=== PATIENT | female | born 1955 | race Caucasian/White ===

== ENCOUNTER → 2016-09-12 | Outpatient (CLI) | payer OTHER ==
[~2016-09-12] MED LIST: ALBUTEROL2.5 MG/3 M IH; ALTOPREV20 MG PO; AMOXICILLIN 8751 TAB PO; CALCIUM/VITAMIN1 TA3 PO; COLESTID 1GM1 G PO; COLESTID5 GM/PACKE PO; COMPLEX B-1000.4 MG PO; COUMADIN5 MG PO; DUO-KAPS1 CAP PO; ELTROXIN0.3 MG PO; EPA/GLA1 SGL PO; FEOSOL325 MG PO; FLONASE0.05 MG/AC NS; FOLPLEX 2.2 0.51 TAB PO; GEMFIBROZIL600 MG PO; LISINOPRIL20 MG PO; LOPID600 MG PO; MASON NATURAL1200 MG PO; MEDI-FIRST ASP325 MG PO; MULTIVITAMIN1 SGL PO; NATURAL E400 IU PO; NORCO 325 MG-51 TAB PO; OXYCODONE PO; POTASSIUM CHLO20 ME3 PO; POTASSIUM20 MEQ PO; RANITIDINE HCL150 M1 PO; SEA OMEGA 301 SGL PO; SYNTHROID0.125 MG/T PO; SYNTHROID0.3 MG PO; VITAMIN C500 MG PO; VITAMIN E400 UNI1 PO; ZOFRAN4 M1 PO; [UNRECOGNIZED DRUG - OTHER] PO
== END ==
LOC: LAB 07:55
DX: E03.8 Other specified hypothyroidism (principal)

== ENCOUNTER → 2016-09-17 | Outpatient (CLI) | payer OTHER | LOC: MAMMO 08:02 | DX: Z12.31 Encounter for screening mammogram for malignant neoplasm of breast (principal); R92.2 Inconclusive mammogram | CPT/HCPCS: G0202 ==

== ENCOUNTER → 2016-12-14 | Outpatient (CLI) | payer OTHER ==
[2015-10-12 12:38] VITALS: BP 110/59
== END ==
LOC: LAB 06:34
DX: I10 Essential (primary) hypertension (principal); M10.9 Gout, unspecified; E78.1 Pure hyperglyceridemia; E03.8 Other specified hypothyroidism

== ENCOUNTER → 2016-12-21 | Outpatient (CLI) | payer OTHER ==
[2015-10-12 12:38] VITALS: BP 110/59
== END ==
LOC: LAB 09:38
DX: Z12.11 Encounter for screening for malignant neoplasm of colon (principal)

== ENCOUNTER → 2017-02-05 | Outpatient (CLI) | payer OTHER ==
[2015-10-12 12:38] VITALS: BP 110/59
== END ==
LOC: LAB 07:19
DX: E03.8 Other specified hypothyroidism (principal)

== ENCOUNTER → 2017-05-13 | Outpatient (CLI) | payer OTHER ==
[2015-10-12 12:38] VITALS: BP 110/59
== END ==
LOC: LAB 10:37
PROVIDERS: Family Medicine
DX: E03.8 Other specified hypothyroidism (principal); R19.7 Diarrhea, unspecified

== ENCOUNTER → 2017-12-22 | Outpatient (CLI) | payer OTHER ==
[2015-10-12 12:38] VITALS: BP 110/59
[2017-12-22 10:59] LABS: ALBUMIN 4.2 g/dL (3.5-5.0); BUN/CREATININE RATIO 19.1 (6.0-26.0); CALCIUM 8.6 mg/dL (8.4-10.2); POTASSIUM 4.6 mmol/L (3.6-5.0); TOTAL BILIRUBIN 0.4 mg/dL (0.2-1.3); TOTAL PROTEIN 7.7 g/dL (6.3-8.2)
== END ==
LOC: LAB 10:29
PROVIDERS: Family Medicine
DX: I10 Essential (primary) hypertension (principal); M10.9 Gout, unspecified; E78.1 Pure hyperglyceridemia; E03.8 Other specified hypothyroidism

== ENCOUNTER → 2018-01-12 | Outpatient (CLI) | payer OTHER ==
[2015-10-12 12:38] VITALS: BP 110/59
== END ==
LOC: RAD 09:04 → MAMMO 09:15
DX: Z13.820 Encounter for screening for osteoporosis (principal); M81.0 Age-related osteoporosis without current pathological fracture; Z87.39 Personal history of other diseases of the musculoskeletal system and connective tissue

== ENCOUNTER → 2018-02-04 | Outpatient (CLI) | payer OTHER ==
[2015-10-12 12:38] VITALS: BP 110/59
== END ==
LOC: LAB 10:26
PROVIDERS: Family Medicine
DX: E03.9 Hypothyroidism, unspecified (principal)

== ENCOUNTER 2018-04-26 17:02 | Emergency (ER) | payer OTHER ==
[~2018-04-26] VITALS: Ht 167.6 cm; Wt 90.0 kg
[2018-04-26] MEDS ORDERED: WARFARIN SODIU2.5 MG PO (17:11)
[2018-04-26 18:01] VITALS: BP 118/76
== END 2018-04-26 18:00 | disposition home or self-care (01) ==
LOC: ED 17:02
DX: Z04.3 Encounter for examination and observation following other accident (principal); V49.88XA Car occupant (driver) (passenger) injured in other specified transport accidents, initial encounter; Y92.414 Local residential or business street as the place of occurrence of the external cause; Y93.9 Activity, unspecified; Y99.9 Unspecified external cause status; I10 Essential (primary) hypertension; I82.509 Chronic embolism and thrombosis of unspecified deep veins of unspecified lower extremity; Z79.01 Long term (current) use of anticoagulants; K21.9 Gastro-esophageal reflux disease without esophagitis; Z87.891 Personal history of nicotine dependence

== ENCOUNTER → 2018-05-24 | Outpatient (CLI) | payer OTHER ==
[2018-04-26 18:01] VITALS: BP 118/76
[~2018-05-24] MED LIST changes: +WARFARIN SODIU2.5 MG PO
== END ==
LOC: MAMMO 08:17
DX: N64.59 Other signs and symptoms in breast (principal); M77.8 Other enthesopathies, not elsewhere classified

== ENCOUNTER → 2018-06-09 | Outpatient (CLI) | payer OTHER | LOC: MSO 09:39 | DX: M25.522 Pain in left elbow (principal) ==

== ENCOUNTER → 2018-09-08 | Outpatient (CLI) | payer OTHER ==
[~2018-09-08] VITALS: Ht 167.6 cm; Wt 90.0 kg
[2018-09-08 12:49] VITALS: BP 134/64
== END ==
LOC: AMSURD 10:08
DX: I48.0 Paroxysmal atrial fibrillation (principal); I49.8 Other specified cardiac arrhythmias; I10 Essential (primary) hypertension; E03.8 Other specified hypothyroidism

== ENCOUNTER → 2019-03-03 | Outpatient (CLI) | payer OTHER ==
[2018-09-08 12:49] VITALS: BP 134/64
== END ==
LOC: LAB 07:43
DX: E03.9 Hypothyroidism, unspecified (principal)

== ENCOUNTER → 2019-05-25 | Outpatient (CLI) | payer OTHER ==
[2018-09-08 12:49] VITALS: BP 134/64
== END ==
LOC: MAMMO 07:16
DX: Z12.31 Encounter for screening mammogram for malignant neoplasm of breast (principal); E03.9 Hypothyroidism, unspecified; E55.9 Vitamin D deficiency, unspecified

== ENCOUNTER 2019-11-13 17:52 | Emergency (ER) | payer OTHER ==
[~2019-11-13] VITALS: Ht 167.6 cm; Wt 95.0 kg
[~2019-11-13 17:52] MED LIST changes: -SYNTHROID0.125 MG/T PO; +SYNTHROID0.2 MG PO
[2019-11-13 18:56] LABS: EOS # 0.1 (0.04-0.40); EOS % 1.2 % (1.0-5.0); HEMATOCRIT 35.8 % (37.0-47.0); HEMOGLOBIN 11.1 g/dL (12.5-16.0); LYMPH# 2.1 (1.50-4.00); MEAN CELL VOLUME 97 fl (78-100); MEAN CORPUSCULAR HEMOGLOBIN 30 pg (27-31); MEAN CORPUSCULAR HGB CONC 31 g/dL (33-37); MEAN PLATELET VOLUME 9.5 fl (7.4-10.4); MONO # 0.5 (0.20-0.80); NEU # 3.7 (1.40-6.50); PLATELET COUNT 315 K/mm3 (130-400); RED BLOOD COUNT 3.71 M/mm3 (4.10-5.30); RED CELL DISTRIBUTION WIDTH 14.1 % (11.5-14.5); WHITE BLOOD COUNT 6.5 K/mm3 (4.8-10.8)
[2019-11-13 19:01] LABS: ALBUMIN 4.1 g/dL (3.4-4.8); POTASSIUM 3.8 mmol/L (3.5-5.1)
[2019-11-13 19:04] LABS: TOTAL PROTEIN 7.3 g/dL (6.2-8.1)
[2019-11-13 19:06] LABS: TOTAL BILIRUBIN 0.3 mg/dL (0.2-1.2)
[2019-11-13] MEDS ORDERED: ACETAMINOPHEN325 M1 PO (19:34)
[2019-11-13] MEDS ORDERED: PRILOSEC OTC20 MG PO (19:35)
[2019-11-13] MEDS ORDERED: METAMUCIL3.4 GM/Dos PO (19:35)
[2019-11-13] MEDS ORDERED: VITAMIN D310 MC1 PO (19:36)
[2019-11-13 19:41] LABS: URINE APPEARANCE CLOUDY; URINE COLOR RED
[2019-11-13 20:00] LABS: PARTIAL THROMBOPLASTIN TIME 101.5 SECONDS (21.0-32.0)
[2019-11-13 22:12] VITALS: BP 160/57
== END 2019-11-13 22:20 | disposition short-term general hospital (02) ==
LOC: ED 17:52
PROVIDERS: Nurse Practitioner
DX: R31.9 Hematuria, unspecified (principal); R79.1 Abnormal coagulation profile; R10.9 Unspecified abdominal pain; K21.9 Gastro-esophageal reflux disease without esophagitis; I10 Essential (primary) hypertension; Z87.891 Personal history of nicotine dependence; Z86.718 Personal history of other venous thrombosis and embolism; Z90.89 Acquired absence of other organs; Z79.82 Long term (current) use of aspirin; Z79.01 Long term (current) use of anticoagulants
CPT/HCPCS: J2270; J2405; Q9967

== ENCOUNTER → 2019-11-17 | Outpatient (CLI) | payer OTHER ==
[2019-11-13 22:12] VITALS: BP 160/57
[~2019-11-17] MED LIST changes: +ACETAMINOPHEN325 M1 PO; +METAMUCIL3.4 GM/Dos PO; +PRILOSEC OTC20 MG PO; +VITAMIN D310 MC1 PO
[2019-11-17 14:39] LABS: EOS # 0.1 (0.04-0.40); EOS % 1.9 % (1.0-5.0); HEMATOCRIT 35.9 % (37.0-47.0); HEMOGLOBIN 11.5 g/dL (12.5-16.0); LYMPH# 2.1 (1.50-4.00); MEAN CELL VOLUME 96 fl (78-100); MEAN CORPUSCULAR HEMOGLOBIN 31 pg (27-31); MEAN CORPUSCULAR HGB CONC 32 g/dL (33-37); MEAN PLATELET VOLUME 9.3 fl (7.4-10.4); MONO # 0.6 (0.20-0.80); NEU # 2.8 (1.40-6.50); PLATELET COUNT 304 K/mm3 (130-400); RED BLOOD COUNT 3.73 M/mm3 (4.10-5.30); RED CELL DISTRIBUTION WIDTH 13.9 % (11.5-14.5); WHITE BLOOD COUNT 5.7 K/mm3 (4.8-10.8)
[2019-11-17 14:48] LABS: POTASSIUM 3.9 mmol/L (3.5-5.1)
[2019-11-17 14:49] LABS: PROTHROMBIN TIME 9.2 SECONDS (9.0-12.0)
[2019-11-17 14:50] LABS: CALCIUM 9.3 mg/dL (8.3-10.5); URINE APPEARANCE HAZY; URINE BILIRUBIN NEGATIVE (NEGATIVE); URINE BLOOD 50 ery/uL (NEGATIVE); URINE COLOR YELLOW; URINE GLUCOSE NEGATIVE (NEGATIVE); URINE KETONE NEGATIVE (NEGATIVE); URINE LEUKOCYTE ESTERASE 1+ (NEGATIVE); URINE NITRATE NEGATIVE (NEGATIVE); URINE PROTEIN(semi-quant) TRACE mg/dL (NEGATIVE); URINE UROBILINOGEN NORMAL (NORMAL)
== END ==
LOC: LAB 14:07
PROVIDERS: Family Medicine
DX: E87.6 Hypokalemia (principal); D64.9 Anemia, unspecified; R31.9 Hematuria, unspecified; I48.0 Paroxysmal atrial fibrillation; D68.61 Antiphospholipid syndrome

== ENCOUNTER → 2019-12-20 | Outpatient (CLI) | payer OTHER ==
[2019-12-20 07:24] LABS: HEMATOCRIT 33.1 % (37.0-47.0); HEMOGLOBIN 10.5 g/dL (12.5-16.0); MEAN PLATELET VOLUME 9.7 fl (7.4-10.4); RED BLOOD COUNT 3.4 M/mm3 (4.10-5.30); RED CELL DISTRIBUTION WIDTH 14.1 % (11.5-14.5)
[2019-12-20 07:31] LABS: POTASSIUM 3.7 mmol/L (3.5-5.1)
[2019-12-20 07:32] LABS: CALCIUM 7.9 mg/dL (8.3-10.5)
== END ==
LOC: LAB 07:09
PROVIDERS: Family Medicine
DX: E87.6 Hypokalemia (principal); D64.9 Anemia, unspecified; E03.9 Hypothyroidism, unspecified; E78.5 Hyperlipidemia, unspecified

== ENCOUNTER → 2020-01-31 | Outpatient (CLI) | payer OTHER ==
[2020-01-31 10:14] LABS: HEMATOCRIT 37.8 % (37.0-47.0); HEMOGLOBIN 12.3 g/dL (12.5-16.0); MEAN PLATELET VOLUME 9.4 fl (7.4-10.4); RED CELL DISTRIBUTION WIDTH 13.8 % (11.5-14.5); WHITE BLOOD COUNT 6.1 K/mm3 (4.8-10.8)
== END ==
LOC: LAB 10:00
PROVIDERS: Family Medicine
DX: E03.9 Hypothyroidism, unspecified (principal); D64.9 Anemia, unspecified; I49.8 Other specified cardiac arrhythmias; D68.61 Antiphospholipid syndrome; I10 Essential (primary) hypertension; I48.0 Paroxysmal atrial fibrillation; E78.5 Hyperlipidemia, unspecified; E55.9 Vitamin D deficiency, unspecified

== ENCOUNTER → 2020-03-13 | Outpatient (CLI) | payer OTHER ==
[2020-03-13 09:00] LABS: PROTHROMBIN TIME 25.7 SECONDS (9.0-12.0)
[2020-03-13 09:52] LABS: EOS # 0.1 (0.04-0.40); EOS % 0.9 % (1.0-5.0); HEMATOCRIT 31.7 % (37.0-47.0); HEMOGLOBIN 10.5 g/dL (12.5-16.0); LYMPH# 3.3 (1.50-4.00); MEAN CELL VOLUME 89 fl (78-100); MEAN CORPUSCULAR HEMOGLOBIN 29 pg (27-31); MEAN CORPUSCULAR HGB CONC 33 g/dL (33-37); MEAN PLATELET VOLUME 10.5 fl (7.4-10.4); MONO # 0.7 (0.20-0.80); NEU # 6.6 (1.40-6.50); PLATELET COUNT 329 K/mm3 (130-400); RED BLOOD COUNT 3.58 M/mm3 (4.10-5.30); RED CELL DISTRIBUTION WIDTH 15.8 % (11.5-14.5)
[2020-03-13 09:56] LABS: URINE APPEARANCE BLOODY; URINE COLOR RED
[2020-03-13 10:37] LABS: ALBUMIN 3.7 g/dL (3.4-4.8); POTASSIUM 2.1 mmol/L (3.5-5.1); TOTAL BILIRUBIN 0.5 mg/dL (0.2-1.2)
[2020-03-13 10:38] LABS: CALCIUM 4.9 mg/dL (8.3-10.5)
[2020-03-13 10:40] LABS: TOTAL PROTEIN 6.2 g/dL (6.2-8.1)
[2020-03-13 23:02] LABS: CALCIUM, IONIZED, SERUM 0.67 mmol/L (1.19-1.41)
== END ==
LOC: LAB 07:32
PROVIDERS: Family Medicine
DX: E03.9 Hypothyroidism, unspecified (principal); D64.9 Anemia, unspecified; I49.8 Other specified cardiac arrhythmias; D68.61 Antiphospholipid syndrome; I10 Essential (primary) hypertension; I48.0 Paroxysmal atrial fibrillation; E78.5 Hyperlipidemia, unspecified; E55.9 Vitamin D deficiency, unspecified; R31.9 Hematuria, unspecified; R25.2 Cramp and spasm; Z86.718 Personal history of other venous thrombosis and embolism

== ENCOUNTER → 2020-07-31 | Outpatient (CLI) | payer OTHER ==
[2020-03-13 14:25] VITALS: BP 151/81
== END ==
LOC: MAMMO 10:00
DX: Z12.31 Encounter for screening mammogram for malignant neoplasm of breast (principal)

== ENCOUNTER 2021-01-20 00:20 | Emergency (ER) | payer OTHER ==
[2021-01-20] MEDS ORDERED: CARAFATE 1GM1 G PO (01:04)
[2021-01-20] MEDS ORDERED: KLONOPIN 1MG1 MG PO (01:06)
[2021-01-20] MEDS ORDERED: VITAMIN D21250 MCG PO (01:07)
[2021-01-20] MEDS ORDERED: FAMOTIDINE20 MG PO (01:08)
[2021-01-20] MEDS ORDERED: LEXAPRO5 MG PO (01:08)
[2021-01-20] MEDS ORDERED: LEVOTHYROXINE175 MCG PO (01:11)
[2021-01-20] MEDS ORDERED: LIDOCAINE HC20 MG/M1 PO (01:12)
[2021-01-20] MEDS ORDERED: LIOTHYRONINE SO5 MCG PO (01:13)
[2021-01-20] MEDS ORDERED: MAALOX ADVANCE355 M1 PO (01:14)
[2021-01-20] MEDS ORDERED: MAGNESIUM400 M1 PO (01:16)
[2021-01-20 01:35] LABS: ALBUMIN 3.4 g/dL (3.4-4.8); POTASSIUM 3.8 mmol/L (3.5-5.1)
[2021-01-20 01:37] LABS: CALCIUM 8.5 mg/dL (8.3-10.5)
[2021-01-20 01:38] LABS: TOTAL PROTEIN 6.2 g/dL (6.2-8.1)
[2021-01-20 01:40] LABS: BASO # 0.02 (0.02-0.10); EOS # 0.16 (0.04-0.40); EOS % 3.1 % (1.0-5.0); HEMATOCRIT 31.7 % (37.0-47.0); HEMOGLOBIN 9.9 g/dL (12.5-16.0); LYMPH# 2.15 (1.50-4.00); MEAN CELL VOLUME 101 fl (78-100); MEAN CORPUSCULAR HEMOGLOBIN 31 pg (27-31); MEAN CORPUSCULAR HGB CONC 31 g/dL (33-37); MEAN PLATELET VOLUME 10.5 fl (7.4-10.4); MONO # 0.48 (0.20-0.80); NEU # 2.25 (1.40-6.50); PLATELET COUNT 217 K/mm3 (130-400); RED BLOOD COUNT 3.15 M/mm3 (4.10-5.30); RED CELL DISTRIBUTION WIDTH 13.6 % (11.5-14.5); TOTAL BILIRUBIN 0.3 mg/dL (0.2-1.2); WHITE BLOOD COUNT 5.1 K/mm3 (4.8-10.8)
[2021-01-20 01:58] LABS: PROTHROMBIN TIME 66.4 SECONDS (9.0-12.0)
[2021-01-20 06:56] LABS: HEMOGLOBIN 9.6 g/dL (12.5-16.0)
[2021-01-20 07:07] LABS: PROTHROMBIN TIME 19.4 SECONDS (9.0-12.0)
[2021-01-20 12:09] LABS: HEMATOCRIT 32.2 % (37.0-47.0)
[2021-01-20 13:39] VITALS: BP 104/54
== END 2021-01-20 13:20 | disposition short-term general hospital (02) ==
LOC: ED 00:20
PROVIDERS: Family Medicine; Nurse Practitioner
DX: D68.59 Other primary thrombophilia (principal); M32.9 Systemic lupus erythematosus, unspecified; I10 Essential (primary) hypertension; E03.9 Hypothyroidism, unspecified; K21.9 Gastro-esophageal reflux disease without esophagitis; Z79.01 Long term (current) use of anticoagulants; Z86.718 Personal history of other venous thrombosis and embolism; Z87.891 Personal history of nicotine dependence; Z79.899 Other long term (current) drug therapy; Z79.890 Hormone replacement therapy; Z20.822 Contact with and (suspected) exposure to COVID-19
CPT/HCPCS: C9113; J3430; J7030; Q9967

== ENCOUNTER → 2021-09-03 | Outpatient (CLI) | payer OTHER ==
[~2021-09-03] MED LIST changes: +CARAFATE 1GM1 G PO; +FAMOTIDINE20 MG PO; +KLONOPIN 1MG1 MG PO; +LEVOTHYROXINE175 MCG PO; +LEXAPRO5 MG PO; +LIDOCAINE HC20 MG/M1 PO; +LIOTHYRONINE SO5 MCG PO; +MAALOX ADVANCE355 M1 PO; +MAGNESIUM400 M1 PO; +VITAMIN D21250 MCG PO
== END ==
LOC: MAMMO 14:50
DX: Z12.31 Encounter for screening mammogram for malignant neoplasm of breast (principal)

== ENCOUNTER → 2022-05-08 | Outpatient (CLI) | payer OTHER ==
[2022-05-08 08:05] LABS: BASO # 0.02 K/mm3 (0.02-0.10); EOS # 0.24 K/mm3 (0.04-0.40); EOS % 4.7 % (1.0-5.0); HEMATOCRIT 36.9 % (37.0-47.0); HEMOGLOBIN 11.6 g/dL (12.5-16.0); LYMPH# 2.68 K/mm3 (1.50-4.00); MEAN CELL VOLUME 95 fl (78-100); MEAN CORPUSCULAR HEMOGLOBIN 30 pg (27-31); MEAN CORPUSCULAR HGB CONC 31 g/dL (33-37); MEAN PLATELET VOLUME 9.1 fl (7.4-10.4); MONO # 0.42 K/mm3 (0.20-0.80); NEU # 1.74 K/mm3 (1.40-6.50); PLATELET COUNT 266 K/mm3 (130-400); RED BLOOD COUNT 3.88 M/mm3 (4.10-5.30); RED CELL DISTRIBUTION WIDTH 13.7 % (11.5-14.5); WHITE BLOOD COUNT 5.1 K/mm3 (4.8-10.8)
== END ==
LOC: LAB 07:46
PROVIDERS: Family Medicine
DX: Z00.00 Encounter for general adult medical examination without abnormal findings (principal); I48.0 Paroxysmal atrial fibrillation; D68.61 Antiphospholipid syndrome; D64.9 Anemia, unspecified; K21.00 Gastro-esophageal reflux disease with esophagitis, without bleeding; E03.9 Hypothyroidism, unspecified; E78.2 Mixed hyperlipidemia; E55.9 Vitamin D deficiency, unspecified

== ENCOUNTER → 2022-05-12 | Outpatient (CLI) | payer OTHER | LOC: RAD 16:45 | DX: M17.11 Unilateral primary osteoarthritis, right knee (principal) ==

== ENCOUNTER → 2022-06-12 | Outpatient (CLI) | payer OTHER ==
[2022-06-12 08:05] LABS: BASO # 0.02 K/mm3 (0.02-0.10); EOS # 0.21 K/mm3 (0.04-0.40); EOS % 4.4 % (1.0-5.0); HEMATOCRIT 36.8 % (37.0-47.0); HEMOGLOBIN 11.8 g/dL (12.5-16.0); LYMPH# 1.83 K/mm3 (1.50-4.00); MEAN CELL VOLUME 95 fl (78-100); MEAN CORPUSCULAR HEMOGLOBIN 31 pg (27-31); MEAN CORPUSCULAR HGB CONC 32 g/dL (33-37); MEAN PLATELET VOLUME 8.9 fl (7.4-10.4); MONO # 0.38 K/mm3 (0.20-0.80); NEU # 2.31 K/mm3 (1.40-6.50); PLATELET COUNT 226 K/mm3 (130-400); RED BLOOD COUNT 3.86 M/mm3 (4.10-5.30); RED CELL DISTRIBUTION WIDTH 14.3 % (11.5-14.5); WHITE BLOOD COUNT 4.8 K/mm3 (4.8-10.8)
[2022-06-12 08:09] LABS: POTASSIUM 4.2 mmol/L (3.5-5.1)
[2022-06-12 08:10] LABS: CALCIUM 9.1 mg/dL (8.3-10.5)
[2022-06-12 08:11] LABS: TOTAL PROTEIN 6.8 g/dL (6.2-8.1)
[2022-06-12 08:13] LABS: TOTAL BILIRUBIN 0.3 mg/dL (0.2-1.2)
[2022-06-12 08:30] LABS: PARTIAL THROMBOPLASTIN TIME 36.9 SECONDS (21.0-32.0); PROTHROMBIN TIME 20.7 SECONDS (9.0-12.0)
== END ==
LOC: LAB 07:43
PROVIDERS: Family Medicine
DX: Z01.812 Encounter for preprocedural laboratory examination (principal); Z01.810 Encounter for preprocedural cardiovascular examination; M13.861 Other specified arthritis, right knee; G47.33 Obstructive sleep apnea (adult) (pediatric); I48.0 Paroxysmal atrial fibrillation; K21.00 Gastro-esophageal reflux disease with esophagitis, without bleeding; D68.61 Antiphospholipid syndrome

== ENCOUNTER → 2022-08-10 | Outpatient (CLI) | payer OTHER ==
[2022-08-10 11:01] LABS: BASO # 0.02 K/mm3 (0.02-0.10); EOS # 0.15 K/mm3 (0.04-0.40); HEMATOCRIT 31.3 % (37.0-47.0); HEMOGLOBIN 9.8 g/dL (12.5-16.0); LYMPH# 1.98 K/mm3 (1.50-4.00); MEAN CELL VOLUME 97 fl (78-100); MEAN CORPUSCULAR HEMOGLOBIN 30 pg (27-31); MEAN CORPUSCULAR HGB CONC 31 g/dL (33-37); MEAN PLATELET VOLUME 10.9 fl (7.4-10.4); MONO # 0.61 K/mm3 (0.20-0.80); NEU # 4.78 K/mm3 (1.40-6.50); PLATELET COUNT 287 K/mm3 (130-400); RED BLOOD COUNT 3.24 M/mm3 (4.10-5.30); RED CELL DISTRIBUTION WIDTH 14.4 % (11.5-14.5); WHITE BLOOD COUNT 7.6 K/mm3 (4.8-10.8)
== END ==
LOC: LAB 10:04
PROVIDERS: Family Medicine
DX: Z79.01 Long term (current) use of anticoagulants (principal)

== ENCOUNTER → 2022-08-11 | Outpatient (CLI) | payer MEDICARE | LOC: RAD 08:24 | DX: Z09 Encounter for follow-up examination after completed treatment for conditions other than malignant neoplasm (principal); Z96.652 Presence of left artificial knee joint ==

== ENCOUNTER → 2022-08-13 | Outpatient (CLI) | payer MEDICARE ==
[2022-08-13 11:56] LABS: PROTHROMBIN TIME 40.6 SECONDS (9.0-12.0)
== END ==
LOC: LAB 10:35
DX: Z01.89 Encounter for other specified special examinations (principal)

== ENCOUNTER → 2022-08-28 | Outpatient (CLI) | payer MEDICARE ==
[2022-08-28 11:40] LABS: PROTHROMBIN TIME 39.5 SECONDS (9.0-12.0)
== END ==
LOC: LAB 10:02
PROVIDERS: Internal Medicine Cardiovascular Disease
DX: Z79.01 Long term (current) use of anticoagulants (principal); Z86.718 Personal history of other venous thrombosis and embolism

== ENCOUNTER 2022-09-02 08:02 | Outpatient (RCR) | payer MEDICARE | END 2022-10-02 | disposition home or self-care (01) | LOC: PT | DX: Z96.659 Presence of unspecified artificial knee joint (principal) ==

== ENCOUNTER → 2022-09-07 | Outpatient (CLI) | payer MEDICARE ==
[2022-09-07 14:11] LABS: PROTHROMBIN TIME 13.6 SECONDS (9.0-12.0)
== END ==
LOC: LAB 13:48
PROVIDERS: Internal Medicine Cardiovascular Disease
DX: Z79.01 Long term (current) use of anticoagulants (principal); Z86.718 Personal history of other venous thrombosis and embolism

== ENCOUNTER → 2022-09-22 | Outpatient (CLI) | payer MEDICARE ==
[2022-09-22 11:34] LABS: PROTHROMBIN TIME 49.7 SECONDS (9.0-12.0)
== END ==
LOC: LAB 10:14
PROVIDERS: Internal Medicine Cardiovascular Disease
DX: Z79.01 Long term (current) use of anticoagulants (principal); Z86.718 Personal history of other venous thrombosis and embolism

== ENCOUNTER → 2022-10-01 | Outpatient (CLI) | payer MEDICARE ==
[2022-10-01 10:28] LABS: PROTHROMBIN TIME 20.6 SECONDS (9.0-12.0)
== END ==
LOC: LAB 08:54
PROVIDERS: Internal Medicine Cardiovascular Disease
DX: Z79.01 Long term (current) use of anticoagulants (principal); Z86.718 Personal history of other venous thrombosis and embolism

== ENCOUNTER → 2022-10-08 | Outpatient (CLI) | payer MEDICARE ==
[2022-10-08 10:43] LABS: PROTHROMBIN TIME 40.9 SECONDS (9.0-12.0)
== END ==
LOC: LAB 09:10
PROVIDERS: Internal Medicine Cardiovascular Disease
DX: Z79.01 Long term (current) use of anticoagulants (principal); Z86.718 Personal history of other venous thrombosis and embolism

== ENCOUNTER → 2022-10-21 | Outpatient (CLI) | payer MEDICARE, OTHER | LOC: MAMMO 09:15 | PROVIDERS: Family Medicine | DX: Z12.31 Encounter for screening mammogram for malignant neoplasm of breast (principal); M85.80 Other specified disorders of bone density and structure, unspecified site ==

== ENCOUNTER → 2023-04-21 | Outpatient (CLI) | payer MEDICARE, OTHER ==
[2023-04-21 09:39] LABS: HEMATOCRIT 39.5 % (37.0-47.0); HEMOGLOBIN 12.5 g/dL (12.5-16.0); MEAN PLATELET VOLUME 9.1 fl (7.4-10.4); RED BLOOD COUNT 4.12 M/mm3 (4.10-5.30); WHITE BLOOD COUNT 5.9 K/mm3 (4.8-10.8)
[2023-04-21 09:43] LABS: POTASSIUM 4.5 mmol/L (3.5-5.1)
[2023-04-21 09:44] LABS: CALCIUM 9.3 mg/dL (8.3-10.5)
== END ==
LOC: LAB 09:00
PROVIDERS: Family Medicine
DX: F41.1 Generalized anxiety disorder (principal); D63.8 Anemia in other chronic diseases classified elsewhere; M25.561 Pain in right knee; E03.9 Hypothyroidism, unspecified; E87.6 Hypokalemia; E78.1 Pure hyperglyceridemia; K59.00 Constipation, unspecified; R06.2 Wheezing